=== PATIENT | female | born 1945 | race Caucasian/White ===

== ENCOUNTER 2023-08-21 13:29 | Emergency (ER) | payer MEDICARE ==
[~2023-08-21] VITALS: Ht 165.1 cm; Wt 106.6 kg
[2023-08-21 15:03] LABS: BASOPHILS # (AUTO) 0.03 K/uL (0.00-0.20); BASOPHILS % (AUTO) 0.4 % (0.0-5.0); EOSINOPHILS # (AUTO) 0.16 K/uL (0.00-0.70); EOSINOPHILS % (AUTO) 2.4 % (0.0-8.0); IMMATURE GRANULOCYTE ABSOLUTE 0.02 K/uL (0-1); LYMPHOCYTES # (AUTO) 1.3 K/uL (1.0-4.8); MEAN CORPUSCULAR HEMOGLOBIN 27.9 pg (27.0-33.0); MEAN CORPUSCULAR HGB CONC 31.7 g/dL (32.0-36.0); MONOCYTES # (AUTO) 0.7 K/uL (0.1-1.0); MONOCYTES % (AUTO) 9.9 % (3.0-13.0); NEUTROPHILS # (AUTO) 4.5 K/uL (1.8-7.7); PLATELET COUNT (AUTO) 251 K/uL (130-400); RED BLOOD CELL COUNT(AUTO) 4.09 MIL/uL (4.00-5.50); RED CELL DISTRIBUTION WIDTH 14.1 % (11.0-15.5); WHITE BLOOD COUNT (AUTO) 6.7 K/uL (4.8-10.8)
[2023-08-21 15:11] LABS: CREATININE 1.2 mg/dL (0.5-1.5); POTASSIUM 3.3 mmol/L (3.5-5.1)
[2023-08-21 15:14] LABS: INR 0.94 (0.85-1.15); PROTHROMBIN TIME 10.9 SEC (9.6-11.6)
[2023-08-21 15:15] LABS: PARTIAL THROMBOPLASTIN TIME 30.6 SEC (26.3-35.5)
[2023-08-21 15:18] LABS: APPEARANCE,URINE CLEAR (CLEAR); BILIRUBIN,URINE NEGATIVE (NEGATIVE); COLOR,URINE LIGHT-YELLOW (YELLOW); GLUCOSE, URINE (UA) NEGATIVE (NEGATIVE); KETONES,URINE NEGATIVE (NEGATIVE); LEUKOCYTE ESTERASE ,URINE 75 Leu/uL (NEGATIVE); NITRATE,URINE NEGATIVE (NEGATIVE); OCCULT BLOOD,URINE NEGATIVE (NEGATIVE); PROTEIN,URINE NEGATIVE (NEGATIVE)
[2023-08-21 15:20] LABS: ADD UA MICROSCOPIC YES
[2023-08-21 15:24] LABS: RBC,URINE 0-1 /HPF (0-1); SQUAMOUS EPITHELIAL CELL,UR RARE /HPF (0-2)
[2023-08-21] MEDS ORDERED: KCL 20 MEQ ERTAB PO ONE (15:30)
[2023-08-21] MEDS ORDERED: MUPI22OI2 TP (16:03)
[2023-08-21 16:10] VITALS: BP 146/75; PULSE 79; RESP 18; O2SAT 99
[2023-08-21] MEDS ORDERED: SULF1TAB42 PO (16:30)
== END 2023-08-21 16:41 | disposition home or self-care (01) ==
LOC: EDH 13:29
DX: S80.11XA Contusion of right lower leg, initial encounter (principal); S80.811A Abrasion, right lower leg, initial encounter; I73.9 Peripheral vascular disease, unspecified; L03.115 Cellulitis of right lower limb; I48.91 Unspecified atrial fibrillation; Z88.0 Allergy status to penicillin; Z95.2 Presence of prosthetic heart valve; V19.9XXA Pedal cyclist (driver) (passenger) injured in unspecified traffic accident, initial encounter; Y93.55 Activity, bike riding; Y92.89 Other specified places as the place of occurrence of the external cause; Y99.8 Other external cause status
CPT/HCPCS: 36415; 73590; 80048; 81001; 82550; 85025; 85610; 85730; 87088; 93971